=== PATIENT | female | born 1965 | race Caucasian/White ===

== ENCOUNTER 2017-10-19 05:30 | Day surgery (SDC) | payer OTHER ==
[2017-09-19 08:29] VITALS: BMI 23.0
[2017-09-19 08:37] VITALS: BMI 23.0
[2017-09-28 13:37] VITALS: BMI 25.0
--- NOTE | 2017-09-28 14:17 | PAT Medication Instructions ---
Service Date Sep 28, 2017. Current Home Medication List Acarbose (Precose), 100 MG PO TID Albuterol Sulfate (Proventil Hfa), 2 PUFF PO Q4H PRN for Shortness of Breath Aspirin (Aspirin), 325 MG PO HS Biotin (Biotin), 1 TAB PO BID Calcium Carbonate-Vitamin D (Calcium + D), 1 TAB PO QAM Cholecalciferol (Vitamin D), 1 TAB PO BID Cyanocobalamin (Vitamin B12), 1 TAB PO QAM Cyanocobalamin (Vitamin B-12), 1 ML INJ MONTHLY Cyclosporine (Ophth) (Restasis), 1 DROP OPB BID Digoxin (Digoxin), 1 TAB PO QAM Epinephrine (Epipen 2-Fidel), 0.3 MG INJ PRN/UD Ferrous Sulfate (Iron), 1 TAB PO BID Fish Oil ([place]-3), 1 CAP PO BID Ipratropium-Albuterol (Duoneb), 1 TREATMENT INH Q4H PRN for Shortness of Breath Lorazepam (Ativan), 0.5 MG PO BID PRN for MUSCLE CRAMPING Magnesium Oxide (Mag-Ox), 400 MG PO BID Midodrine (Midodrine HCl), 1 TAB PO TID Multiple Vitamin (Multivitamin), 1 TAB PO QAM Nitroglycerin (Nitrostat), 0.4 MG UT PRN Oxycodone/Acetaminophen 7.5MG/325MG (Percocet 7.5MG/325MG), 1 TAB PO Q6H PRN for Pain Pantoprazole (Protonix), 40 MG PO BID Promethazine Hcl (Phenergan), 25 MG PO Q8H PRN for Nausea Tizanidine (Zanaflex ), 4 MG PO BID Topiramate (Topamax), 200 MG PO BID Tramadol (Ultram), 50 MG PO Q6H PRN for Pain Zafirlukast (Accolate), 20 MG PO BID Medication Instructions For Your Scheduled Surgery Contact your surgeon for instructions for: Aspirin (Aspirin), 325 MG PO HS - Continue as directed: Nitroglycerin (Nitrostat), 0.4 MG UT PRN Cyanocobalamin (Vitamin B-12), 1 ML INJ MONTHLY Epinephrine (Epipen 2-Fidel), 0.3 MG INJ PRN/UD - Hold the following medications 2 weeks prior to surgery: Fish Oil ([place]-3), 1 CAP PO BID - Hold the following medications the morning of surgery: Biotin (Biotin), 1 TAB PO BID Calcium Carbonate-Vitamin D (Calcium + D), 1 TAB PO QAM Cholecalciferol (Vitamin D), 1 TAB PO BID Cyanocobalamin (Vitamin B12), 1 TAB PO QAM Acarbose (Precose), 100 MG PO TID Tizanidine (Zanaflex ), 4 MG PO BID Ferrous Sulfate (Iron), 1 TAB PO BID Multiple Vitamin (Multivitamin), 1 TAB PO QAM - Take the following medications the morning of surgery with a sip of water: Zafirlukast (Accolate), 20 MG PO BID Topiramate (Topamax), 200 MG PO BID Digoxin (Digoxin), 1 TAB PO QAM Cyclosporine (Ophth) (Restasis), 1 DROP OPB BID Tramadol (Ultram), 50 MG PO Q6H PRN for Pain (if needed) Ipratropium-Albuterol (Duoneb), 1 TREATMENT INH Q4H PRN for Shortness of Breath (if needed) Lorazepam (Ativan), 0.5 MG PO BID PRN for MUSCLE CRAMPING (if needed) Magnesium Oxide (Mag-Ox), 400 MG PO BID Midodrine (Midodrine HCl), 1 TAB PO TID Oxycodone/Acetaminophen 7.5MG/325MG (Percocet 7.5MG/325MG), 1 TAB PO Q6H PRN for Pain (if needed, can be taken up to four hours before surgery) Pantoprazole (Protonix), 40 MG PO BID Promethazine Hcl (Phenergan), 25 MG PO Q8H PRN for Nausea (if needed) Albuterol Sulfate (Proventil Hfa), 2 PUFF PO Q4H PRN for Shortness of Breath ( if needed) - Take the following medications as scheduled the night before surgery: Zafirlukast (Accolate), 20 MG PO BID Topiramate (Topamax), 200 MG PO BID Cholecalciferol (Vitamin D), 1 TAB PO BID Biotin (Biotin), 1 TAB PO BID Acarbose (Precose), 100 MG PO TID Cyclosporine (Ophth) (Restasis), 1 DROP OPB BID Tramadol (Ultram), 50 MG PO Q6H PRN for Pain (if needed) Tizanidine (Zanaflex ), 4 MG PO BID Ipratropium-Albuterol (Duoneb), 1 TREATMENT INH Q4H PRN for Shortness of Breath (if needed) Lorazepam (Ativan), 0.5 MG PO BID PRN for MUSCLE CRAMPING (if needed) Magnesium Oxide (Mag-Ox), 400 MG PO BID Midodrine (Midodrine HCl), 1 TAB PO TID Oxycodone/Acetaminophen 7.5MG/325MG (Percocet 7.5MG/325MG), 1 TAB PO Q6H PRN for Pain (if needed, can be taken up to four hours before surgery) Pantoprazole (Protonix), 40 MG PO BID Promethazine Hcl (Phenergan), 25 MG PO Q8H PRN for Nausea (if needed) Albuterol Sulfate (Proventil Hfa), 2 PUFF PO Q4H PRN for Shortness of Breath ( if needed) If you have any questions please call us at [phone] or [phone] or [phone]
[2017-09-28 14:59] LABS: HEMATOCRIT 41.1 % (37-47); HEMOGLOBIN 13.3 g/dL (12.0-16.0); MEAN CELL VOLUME 89.2 fL (80-100); MEAN CORPUSCULAR HEMOGLOBIN 28.9 pg (25-34); MEAN CORPUSCULAR HGB CONC 32.4 g/dl (32-36); MEAN PLATELET VOLUME 9.3 fL (7.4-10.4); PLATELET COUNT 255 K/uL (130-400); RED CELL DISTRIBUTION WIDTH CV 17.8 % (11.5-14.5); RED CELL DISTRIBUTION WIDTH SD 57.7 fL (36.4-46.3); WHITE BLOOD COUNT 7.37 K/uL (4.8-10.8)
--- NOTE | 2017-09-28 14:59 | DIAGNOSTIC IMAGING REPORT ---
CHEST 2 VIEWS ROUTINE CLINICAL HISTORY: 51 years-old Female presenting with pre-op, recent pneumonia. TECHNIQUE: PA and lateral views of the chest were obtained. COMPARISON: 07/14/2016. FINDINGS: Left subclavian pacer with leads to the right atrium and right ventricular apex. Cardiac mediastinal silhouette normal. Lungs and pleural spaces clear. Osseous structures normal. Surgical clips project over the right upper quadrant. An anastomotic suture line may be present in the epigastrium. IMPRESSION: 1. No acute cardiopulmonary disease. Electronically signed by: Cam De Dios M.D. 09/28/2017 2:57 PM Dictated Date/Time: 09/28/2017 2:56 PM
[2017-09-28 16:06] LABS: CREATININE 0.52 mg/dl (0.60-1.20); POTASSIUM 4.6 mmol/L (3.5-5.1)
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
[~2017-10-19] VITALS: Ht 160 cm; Wt 61.4 kg
[~2017-10-19 05:30] MED LIST: ACAR100T PO; ALBUAER PO; ASPECOTC PO; BIOT1TAB5 PO; CALC600T9 PO; CHOL100010 PO; CYAN100020 PO; CYAN100048 INJ; CYCL0.052 OPB; EPP3/2 INJ; FERR1TAB23 PO; IPRA-64 INH; LNX125 PO; LORA-741 PO; MAGN400T6 PO; MULTTAB58 PO; NTRGSL/4 UT; OMEG10007 PO; OXYC7.5T65 PO; PANT40TA PO; PRMT10 PO; PROM25TA9 PO; TOPI200T14 PO; TRAM-10 PO; ZAFI1TAB10 PO; ZNF4 PO
[2017-10-19] MEDS ORDERED: LACTATED RINGER'S 1000ML 1,000 ML IV SCH (06:00)
[2017-10-19] MEDS ORDERED: LACTATED RINGER'S 1000ML IV SCH (06:00)
[2017-10-19] MEDS ORDERED: CEFAZOLIN 2000MG IV PUSH 10 ML IV SCH (06:00)
[2017-10-19 06:09] VITALS: BP 97/60; PULSE 55; TEMP 36.8; O2SAT 100; Ht 160 cm; Wt 61.4 kg
[2017-10-19] MEDS ORDERED: DEXAMETHASONE SOD INJ 4 MG/ML VIAL ONE (06:45)
[2017-10-19] MEDS ORDERED: ONDANSETRON INJ 2 MG/ML 2 ML VIAL ONE (06:45)
[2017-10-19] MEDS ORDERED: PROPOFOL IV EMULSION 10 MG/ML 20 ML VIAL IV ONE (06:45)
[2017-10-19] MEDS ORDERED: LIDOCAINE HCL 2% 2 ML VIAL (20MG/ML) ONE (06:45)
[2017-10-19] MEDS ORDERED: MIDAZOLAM HCL 1 MG/ML 2ML VIAL ONE (06:45)
[2017-10-19] MEDS ORDERED: FENTANYL CITRATE INJ 50 MCG/1 ML 2 ML VIAL ONE ×2 (06:46→08:07)
--- NOTE | 2017-10-19 06:59 | History & Physical Bridge Note ---
H&P Re-Evaluation Bridge Note: I have examined the patient, reviewed the History & Physical and in the interval since the performance of the History & Physical I have noted the following changes of clinical significance: No changes noted
[2017-10-19] MEDS ORDERED: KETOROLAC TROMETHAMINE 30 MG/ML VIAL ONE ×2 (07:07→07:43)
[2017-10-19] MEDS ORDERED: EpINEphrine INJ 1MG/ML AMP 1 MG/ML AMP ONE (07:07)
[2017-10-19] MEDS ORDERED: BUPIVACAINE 0.5 % 5 MG/1 ML MPF 30ML VIAL ONE (07:07)
[2017-10-19] MEDS ORDERED: PROMETHAZINE HCL INJ 12.5 MG in SODIUM CHLORIDE 0.9% 50ML 50 ML IV PRN (07:15)
[2017-10-19] MEDS ORDERED: HYDROmorphone INJ 1 MG/ML SYR IV PRN (07:15)
[2017-10-19] MEDS ORDERED: FENTANYL CITRATE INJ 50 MCG/1 ML 2 ML VIAL IV PRN (07:15)
[2017-10-19] MEDS ORDERED: EpHEDrine SULFATE INJ 50 MG/ML AMP IV PRN (07:15)
[2017-10-19] MEDS ORDERED: ATROPINE SULFATE 0.1 MG/ML 5ML SYR IV PRN (07:15)
[2017-10-19] MEDS ORDERED: ONDANSETRON INJ 2 MG/ML 2 ML VIAL IV PRN (07:15)
[2017-10-19] MEDS ORDERED: ROCURONIUM BROMIDE 10 MG/ML 5 ML VIAL IV ONE (07:35)
--- NOTE | 2017-10-19 07:46 | [facility] Post Operative Brief Note ---
Immediate Operative Summary Operative Date Oct 19, 2017. Pre-Operative Diagnosis Right knee pain with flexion contracture and lateral meniscus tear Post-Operative Diagnosis PLICA BAND RIGHT KNEE Procedure(s) Performed RIGHT KNEE ARTHROSCOPY WITH SYNOVECTOMY REMOVAL PLICA BAND Surgeon Dr. Bruner Immigration Coordinator Surgeon(s) Alvarez Gaston PA-C Estimated Blood Loss 0 Findings ABOV E Specimens None per surgeon Drains NONE Anesthesia GET Complication(s) None Disposition Recovery Room / PACU
[2017-10-19] MEDS ORDERED: SODIUM CHLORIDE 0.9% 1000ML 1,000 ML IV SCH (07:52)
--- NOTE | 2017-10-19 08:01 | Discharge Instructions ---
Discharge Instructions Date of Service Oct 19, 2017. Admission Reason for Admission: Right Knee Meniscus Tear Discharge Discharge Diagnosis / Problem: RIGHT KNEE PAIN Discharge Goals Goal(s): Decrease discomfort, Therapeutic intervention Activity Recommendations Activity Limitations: per Instructions/Follow-up section Weightbearing Status: Right weightbearing (as tolerated) . Instructions / Follow-Up Instructions / Follow-Up MEDICATIONS: * Resume previous medications unless instructed otherwise by your surgeon. * Always take pain medication on a full stomach or with food to avoid upset stomach. * Do not drink alcohol or drive while taking narcotics. * Ibuprofen or Tylenol may be taken if narcotic not needed. SPECIAL CARE INSTRUCTIONS: __ None _X_ Keep extremity elevated and iced x 48 hours; apply ice 20-30 minutes 8-10 times/day. May remove at night. _X_ Crutches _X_ May discard when able __ Brace/Post-op shoe __ 24 hrs/day __ Remove at night _X_ Dressing __ Maintain until seen in office, may shower with plastic over site _X_ Remove dressings in 24-48 hours and then may shower _X_ Cover incisions with band-aids after showering __ Do not remove steri-strips Call physician if chills or temperature rises above 102 degrees or pain unrelieved by prescribed pain medications. Office [phone] FOLLOW UP IN 10-14 DAYS POST OP Current Hospital Diet Patient's current hospital diet: Discharge Diet Recommended Diet: Regular Diet Procedures Procedures Performed: RIGHT KNEE ARTHROSCOPY WITH SYNOVECTOMY REMOVAL PLICA BAND Pending Studies Studies pending at discharge: no Medical Emergencies . Who to Call and When: Medical Emergencies: If at any time you feel your situation is an emergency, please call 911 immediately. . Non-Emergent Contact Non-Emergency issues call your: Surgeon . "Provider Documentation" section prepared by Alvarez Gaston. . VTE Core Measure Inpt VTE Proph given/why not?: Other Anticoagulation (ALREADY TAKING ASPIRIN )
[2017-10-19] MEDS ORDERED: HYDROmorphone INJ 1 MG/ML SYR ONE ×2 (08:07→08:28)
--- NOTE | 2017-10-19 08:25 | OPERATIVE REPORT ---
DATE OF OPERATION: 10/19/2017 PREOPERATIVE DIAGNOSIS: Lateral meniscus tear, right knee. POSTOPERATIVE DIAGNOSIS: Synovitis with plica band superior lateral compartment, right knee. PROCEDURE: Right knee arthroscopy with synovectomy and removal of plica band. SURGEON: Dr. Bruner. FOREIGN EXCHANGE SERVICES MANAGER: Yusef Gaston PA-C. ANESTHESIOLOGIST: Giovana ANESTHESIA: General anesthetic. DRAINS: None. COMPLICATIONS: None. CONDITION: The patient tolerated the procedure well and returned to recovery room in apparent satisfactory condition. INDICATIONS FOR SURGERY: Debby is a 51-year-old female who has had a year history of right knee pain and discomfort and unable to do an MRI because of a pacemaker and has been under conservative care. Continues to have problems. Arthrogram CT scan was done, there was evidence of a lateral meniscus tear per that test, elected to go ahead and proceed with surgery. Procedure, expected outcomes and side effects, risks were all explained in detail. OPERATION AND FINDINGS: PROCEDURE: The patient was taken to the operating room at which time she was placed supine on the operating room table and put to sleep by the anesthesia department. Examination of the right knee was performed. Ligamentous jauregui stable. She had full range of motion, came out to full extension, did not have any adhesions that I could ascertain or we were concerned about a little bit of arthrofibrosis to the knee joint. We then went ahead and prepped and draped in usual sterile fashion. We began arthroscopic examination of the right knee, the anteromedial and anterolateral portals. The tourniquet was placed up to 300 mmHg. We inspected both compartments of the knee. There was some synovitis and irritation front part, this was shaved out. The meniscus on both sides of the knee were normal. ACL was normal. We found a plica band in the suprapatellar joint which was superior lateral which was removed. The articular surfaces in all 3 compartments of the knee were excellent condition. After synovectomy was performed the knee then was copiously irrigated. All cannulas were removed. Portals were closed with 4-0 nylon sutures. 30 mL of mepivacaine, 10 mg of Toradol, 1 mL epinephrine was placed in the knee joint. Skin incisions were injected with Marcaine without epinephrine. She was placed in a sterile dressing of Xeroform, 4 x 4, ABD, Sof-Rol, and Sandeep bandage and returned back to recovery room in apparent satisfactory condition. SURGICAL FINDINGS: Include synovitis with superior lateral plica band with meniscus and articular surfaces being normal. I attest to the content of the Intraoperative Record and any orders documented therein. Any exceptions are noted below. MONTSE
--- NOTE | 2017-10-19 08:37 | Anesthesiology Progress Note ---
Anesthesia Post Op Note Date & Time Oct 19, 2017 at 08:37 Vital Signs Pain Intensity: 5.0 Vital Signs Past 12 Hours Date Time Temp Pulse Resp B/P (MAP) Pulse Ox O2 Delivery O2 Flow Rate FiO2 10/19/17 08:33 55 15 10/19/17 08:33 55 15 99 10/19/17 08:31 100/56 10/19/17 08:28 55 16 100 10/19/17 08:28 55 16 10/19/17 08:26 104/60 10/19/17 08:23 55 16 10/19/17 08:23 55 16 100 10/19/17 08:22 112/53 10/19/17 08:20 55 20 100 10/19/17 08:20 55 20 10/19/17 08:17 101/56 10/19/17 08:15 55 15 100 10/19/17 08:15 55 15 10/19/17 08:11 112/51 10/19/17 08:10 55 21 10/19/17 08:10 55 21 100 10/19/17 08:06 106/58 10/19/17 08:05 55 18 100 10/19/17 08:05 55 18 10/19/17 08:02 102/51 10/19/17 08:00 55 16 10/19/17 08:00 55 16 100 10/19/17 08:00 36.5 55 16 100/51 100 Oxymask 10 10/19/17 06:09 36.8 55 18 97/60 (72) 100 Room Air Notes Mental Status: alert / awake / arousable, participated in evaluation Pt Amnestic to Procedure: Yes Nausea / Vomiting: adequately controlled Pain: adequately controlled Airway Patency, RR, SpO2: stable & adequate BP & HR: stable & adequate Hydration State: stable & adequate Anesthetic Complications: no major complications apparent
[2017-10-19 09:21] VITALS: BP 96/53; PULSE 55; TEMP 36.4; O2SAT 94
[2017-10-19 09:42] VITALS: BP 90/51; PULSE 55; O2SAT 94
[2017-10-19 10:20] VITALS: BP 87/50; PULSE 55; TEMP 36.2; O2SAT 98
== END 2017-10-19 10:30 | disposition home or self-care (01) ==
LOC: C.ACU 05:30
PROVIDERS: ATTEND Orthopaedic Surgery
DX: M65.861 Other synovitis and tenosynovitis, right lower leg (principal); M67.51 Plica syndrome, right knee; J45.909 Unspecified asthma, uncomplicated; I50.9 Heart failure, unspecified; K21.9 Gastro-esophageal reflux disease without esophagitis; Z90.89 Acquired absence of other organs; Z90.49 Acquired absence of other specified parts of digestive tract; Z98.84 Bariatric surgery status; Z95.0 Presence of cardiac pacemaker; Z79.82 Long term (current) use of aspirin; Z79.899 Other long term (current) drug therapy; Z82.49 Family history of ischemic heart disease and other diseases of the circulatory system; Z83.3 Family history of diabetes mellitus; Z81.8 Family history of other mental and behavioral disorders